=== PATIENT | female | born 1945 | race Two or more races ===

== ENCOUNTER 2019-12-20 08:30 | Inpatient (IN) | payer OTHER ==
[~2019-12-20] VITALS: Ht 157.5 cm; Wt 74.8 kg
[2019-12-20] MEDS ORDERED: LEVOTHYROXINE25 MCG PO (09:18)
== END 2019-12-31 11:03 | disposition home or self-care (01) | DRG 331 ==
LOC: SURH 12-27 07:19 → O/R 12-27 07:19 → SURH 12-27 08:45
PROVIDERS: ADMIT Colon & Rectal Surgery; ATTEND Colon & Rectal Surgery
PROC: 0DJD8ZZ Inspection of Lower Intestinal Tract, Via Natural or Artificial Opening Endoscopic (ICD-10-PCS; 2019-12-27)
PROC: 0DTN4ZZ Resection of Sigmoid Colon, Percutaneous Endoscopic Approach (ICD-10-PCS; principal; 2019-12-27 09:00)
DX: K57.32 Diverticulitis of large intestine without perforation or abscess without bleeding (principal)

== ENCOUNTER 2020-01-02 18:48 | Inpatient (IN) | payer OTHER ==
[~2020-01-02] VITALS: Ht 160 cm; Wt 72.6 kg
[~2020-01-02 18:48] MED LIST: LEVOTHYROXINE25 MCG PO
--- NOTE | 2020-01-02 19:05 | NUR ---
SE RECIBE PTE ALERTA Y ORIENTADA X3 EN AMBULANCIA LA CUAL REFIERE VENIR POR DOLOR ABDOMINAL Y NAUSEAS. PTE SE MERDionna CHAVEZ. SE MIDEN S/V A PTE Y SE COLOCA EN DAVON PARA EVALUACION MEDICA.
== END 2020-01-08 14:51 | disposition home or self-care (01) | DRG 394 ==
LOC: ER 18:48 → SEC-K 19:17 → SURH 01-03 15:23 → SEC-K 01-03 17:20 → SURH 01-03 17:22
PROVIDERS: ADMIT Colon & Rectal Surgery; ATTEND Colon & Rectal Surgery
PROC: 3E0336Z Introduction of Nutritional Substance into Peripheral Vein, Percutaneous Approach (ICD-10-PCS; principal; 2020-01-02)
PROC: BW21ZZZ Computerized Tomography (CT Scan) of Abdomen and Pelvis (ICD-10-PCS; 2020-01-03)
PROC: CB2YYZZ Tomographic (Tomo) Nuclear Medicine Imaging of Respiratory System using Other Radionuclide (ICD-10-PCS; 2020-01-03)
PROC: BW2GZZZ Computerized Tomography (CT Scan) of Pelvic Region (ICD-10-PCS; 2020-01-08)
DX: K91.89 Other postprocedural complications and disorders of digestive system (principal); J98.11 Atelectasis; T81.43XA Infection following a procedure, organ and space surgical site, initial encounter; E03.9 Hypothyroidism, unspecified; Y83.2 Surgical operation with anastomosis, bypass or graft as the cause of abnormal reaction of the patient, or of later complication, without mention of misadventure at the time of the procedure; Z20.828 Contact with and (suspected) exposure to other viral communicable diseases